=== PATIENT | female | born 1955 | race African-American/Black ===

== ENCOUNTER 2017-03-16 17:13 | Inpatient (IN) | payer OTHER ==
[2017-03-16 21:15] VITALS: BMI 31.1
--- NOTE | 2017-03-16 22:50 | HP ---
COWS - Scale Resting Pulse: 2= [place] 101-120 Sweatin=Flushed/Facial Moisture Restless Observation: 5= Unable to Sit Still Pupil Size: 1= Pupils >than Normal Bone or Joint Aches: 4=Acute Joint/Muscle Pain Runny Nose/ Eye Tearin= Nasal Congestion GI Upset > 30mins: 1= Stomach Cramp Tremor Observation: 4= Gross Tremor/Twitching Yawning Observation: 0= None Anxiety or Irritability: 2=Irritable/Anxious Goose Flesh Skin: 0=Smooth Skin COWS Score: 22 Admission ROS S - HPI Chief Complaint: SEEKING HELP FOR HEROIN ADDICTION AND WITHDRAWAL SX'S Allergies/Adverse Reactions: Allergies Allergy/AdvReac Type Severity Reaction Status Date / Time haloperidol [From Haldol] AdvReac Verified 03/16/17 22:45 haloperidol lactate AdvReac Verified 03/16/17 22:45 [From Haldol] History of Present Illness: 61 Y.O. FEMLAE WITH HX/O OPIOID DEPENDNECE ADMITTED TO DETOX TXMENT. CLIENT IS SELF REFERRED. DENIES ANY DETOX/ REHAB SERVICES IN OVER A YEAR. REPORTS LONGEST CLEAN TIME 11 YEARS RELAPSING THIS PAST YEAR. Exam Limitations: No Limitations - Ebola screening Have you traveled outside of the country in the last 21 days: No Have you had contact with anyone from an Ebola affected area: No Have you been sick,other than usual withdrawal symptoms: No Do you have a fever: No - Review of Systems Constitutional: Chills, Loss of Appetite, Night Sweats, Changes in sleep EENT: reports: Hearing Loss, Dental Problems (DENTURES UPPER), Other (GLASSES) Respiratory: reports: Shortness of Breath, Other (H/O ASTHMA) Cardiac: reports: No Symptoms Reported GI: reports: Nausea, Abdominal cramping : reports: No Symptoms Reported Musculoskeletal: reports: Back Pain, Joint Pain Integumentary: reports: No Symptoms Reported Neuro: reports: No Symptoms reported Endocrine: reports: No Symptoms Reported Hematology: reports: No Symptoms Reported Psychiatric: reports: Anxious, Depressed Other Systems: Reviewed and Negative Patient History - Patient Medical History Hx Anemia: Yes Hx Asthma: Yes Hx Chronic Obstructive Pulmonary Disease (COPD): Yes Hx Cancer: No Hx Cardiac Disorders: No Hx Congestive Heart Failure: No Hx Hypertension: No Hx Hypercholesterolemia: Yes Hx Pacemaker: No HX Cerebrovascular Accident: Yes (8 MONTHS AGO) Hx Seizures: No Hx Dementia: No Hx Diabetes: No Hx Gastrointestinal Disorders: No Hx Liver Disease: No Hx Genitourinary Disorders: No Hx Sexually Transmitted Disorders: No Hx Renal Disease (ESRD): No Hx Thyroid Disease: No Hx Human Immunodeficiency Virus (HIV): No Hx Hepatitis C: No Hx Depression: Yes Hx Suicide Attempt: Yes Hx Bipolar Disorder: Yes Hx Schizophrenia: Yes Other Medical History: DENIES - Patient Surgical History Past Surgical History: No - PPD History Previous Implant?: Yes Documented Results: Positive w/o proof Implanted On Prior [facility] Admission?: No PPD to be Administered?: No - Reproductive History Patient is a Female of Child Bearing Age (11 -55 yrs old): No Patient : No (NEG [facility] [place]) - Smoking Cessation Smoking history: Current every day smoker Have you smoked in the past 12 months: Yes Aproximately how many cigarettes per day: 10 Cigars Per Day: 0 Hx Chewing Tobacco Use: No Initiated information on smoking cessation: Yes 'Breaking Loose' booklet given: 03/16/17 - Substance & Tx. History Hx Substance Use: Yes Substance Use Type: Cocaine, Heroin Hx Substance Use Treatment: Yes ([facility]) - Substances Abused HEROIN Route: Injection Frequency: Daily Amount used: 10BAGS Age of first use: 15 Date of Last Use: 03/16/17 COCAINE Route: Injection Frequency: Daily Amount used: 5 BAGS Age of first use: 15 Date of Last Use: 03/13/17 Family Disease History - Family Disease History Family Disease History: Heart Disease: Mother (DEMENTIA), Other: Mother Admission Physical Exam [facility] - Vital Signs Vital Signs: Vital Signs - 24 hr 03/16/17 21:13 Temperature 98.8 F Pulse Rate 115 H Respiratory 20 Rate Blood Pressure 145/88 - Physical General Appearance: Yes: Appropriately Dressed, Anxious HEENTM: Yes: EOMI, Normocephalic, Normal Voice, Pharynx Normal Respiratory: Yes: Chest Non-Tender, No Respiratory Distress, No Accessory Muscle Use, Wheezing Neck: Yes: No masses,lesions,Nodules, Supple, Trachea in good position Breast: Yes: Breast Exam Deferred Cardiology: Yes: Regular Rhythm, S1, S2, Tachycardia Abdominal: Yes: Normal Bowel Sounds, Non Tender, Soft Genitourinary: Yes: Within Normal Limits Back: Yes: Normal Inspection Musculoskeletal: Yes: full range of Motion, Gait Steady Extremities: Yes: Normal Capillary Refill, Normal Range of Motion, Non-Tender, Tremors Neurological: Yes: mechanical artist II-XII NML intact, Fully Oriented, Alert, Motor Strength 5/5 Integumentary: Yes: Normal Color, Dry, Warm Lymphatic: Yes: Within Normal Limits - Diagnostic (1) Opioid dependence with withdrawal Current Visit: Yes Status: Acute (2) Nicotine dependence Current Visit: Yes Status: Acute (3) Asthma Current Visit: Yes Status: Acute (4) Cocaine dependence, uncomplicated Current Visit: Yes Status: Acute (5) HLD (hyperlipidemia) Current Visit: Yes Status: Acute (6) Anemia Current Visit: Yes Status: Acute Cleared for Admission [facility] - Detox or Rehab [facility] Level of Care: Medically Managed Detox Regimen/Protocol: Methadone [facility] Breath Alcohol Content Breath Alcohol Content: 0 Urine Pregancy Test - Result Urine Test Results: Negative- NO Line Present Urine Drug Screen - Results Drug Screen Negative: No Urine Drug Screen Results: ANA MARIA-Cocaine, OPI-Opiates, MET-Methamphetamine, MTD- Methadone
[2017-03-16] MEDS ORDERED: MENTHOL/PHENOL 1 EACH UD MM PRN (23:05)
[2017-03-16] MEDS ORDERED: NICOTINE POLACRILEX 2 MG GUM BUC PRN (23:05)
[2017-03-16] MEDS ORDERED: MAGNESIUM HYDROX 2400MG/30ML ORAL SUSPENSION 30 ML CUP PO PRN (23:05)
[2017-03-16] MEDS ORDERED: P-EPHED 60MG/TRIPROLIDI 2.5MG TABLET PO PRN (23:05)
[2017-03-16] MEDS ORDERED: ACETAMINOPHEN 325 MG TABLET (FP) PO PRN (23:05)
[2017-03-16] MEDS ORDERED: guaiFENesin/D-METHORPHAN HB 10 ML UNIT-DOSE CUPS PO PRN (23:05)
[2017-03-16] MEDS ORDERED: LOPERAMIDE HCL 2 MG CAPSULE PO PRN (23:05)
[2017-03-16] MEDS ORDERED: MAGNESIUM CITRATE 300 ML BOTTLE PO PRN (23:05)
[2017-03-17] MEDS ORDERED: METHADONE HCL 10 MG TABLET (FOR DETOX USE ONLY) PO ONE ×3 (00:42→23:00)
[2017-03-17] MEDS: diazePAM 5 MG TABLET PO PRN ×4 (01:42→22:09)
[2017-03-17] MEDS: diphenhydrAMINE HCL 50 MG CAPSULE PO PRN (01:43)
[2017-03-17] MEDS: MAG HYDROX/AL HYDROX/SIMETH 30 ML UNIT-DOSE CUP PO PRN ×2 (02:16→13:02)
[2017-03-17] MEDS: ALBUTEROL SO4 18 GM HFA INHALER IH PRN (02:19)
[2017-03-17] MEDS: IBUPROFEN 400 MG TABLET (FP) PO PRN ×3 (02:42→17:54)
[2017-03-17] MEDS: PRENATAL VITAMINS W/ FOLIC ACID TABLET (FP) PO SCH (10:21)
[2017-03-17] MEDS: NICOTINE 14 MG/24 HOURS TOPICAL PATCH TD SCH (10:21)
--- NOTE | 2017-03-17 10:44 | PN ---
BHS COWS - Scale Resting Pulse: 1= [place] 81-100 Sweatin=Flushed/Facial Moisture Restless Observation: 1= Difficult to Sit Still Pupil Size: 0= Normal to Room Light Bone or Joint Aches: 2= Severe Diffuse Aches Runny Nose/ Eye Tearin= Runny Nose/Eyes GI Upset > 30mins: 2= Nausea/Diarrhea Tremor Observation of Outstretched Hands: 2= Slight Tremor Visible Yawning Observation: 2= >3x During Session Anxiety or Irritability: 2=Irritable/Anxious Goose Flesh Skin: 3=Piloerection COWS Score: 19 BHS Progress Note (SOAP) Subjective: shakes sweats interrupted sleep agitation anxiety muscle cramps Objective: 03/17/17 10:43 Vital Signs Temperature 98.2 F 03/17/17 10:00 Pulse Rate 91 H 03/17/17 10:00 Respiratory Rate 18 03/17/17 10:00 Blood Pressure 130/83 03/17/17 10:00 O2 Sat by Pulse Oximetry (%) labs pending aaox3 ambulating no acute distress Assessment: 03/17/17 10:43 withdrawal sx Plan: continue detox increase fluids flexiril prn labs pending
[2017-03-17] MEDS ORDERED: FLU VACCINE QUAD 60 MCG/0.5 ML (MDV 17-18) IM ONE (12:00)
--- NOTE | 2017-03-17 12:38 | CONSULT ---
[facility] - Data Date of interview: 03/17/17 Admission source: [facility]
[2017-03-17] MEDS: THIAMINE HCL 100 MG TABLET (FP) PO SCH (22:09)
[2017-03-18] MEDS: IBUPROFEN 400 MG TABLET (FP) PO PRN (05:57)
[2017-03-18] MEDS: diazePAM 5 MG TABLET PO PRN ×3 (05:57→22:11)
[2017-03-18] MEDS: ALBUTEROL SO4 18 GM HFA INHALER IH PRN (06:29)
[2017-03-18] MEDS ORDERED: METHADONE HCL 10 MG TABLET (FOR DETOX USE ONLY) PO ONE (10:00)
[2017-03-18 10:08] LABS: URINE APPEARANCE CLOUDY; URINE BILIRUBIN NEGATIVE (NEGATIVE); URINE BLOOD 1+ (NEGATIVE); URINE COLOR YELLOW; URINE GLUCOSE (UA) NEGATIVE (NEGATIVE); URINE KETONE NEGATIVE (NEGATIVE); URINE NITRITE NEGATIVE (NEGATIVE); URINE PROTEIN NEGATIVE (NEGATIVE); URINE UROBILINOGEN NEGATIVE mg/dL (0.2-1.0)
[2017-03-18 10:19] LABS: MCH 23.9 pg (25.7-33.7); MCHC 31.7 g/dl (32.0-36.0); MEAN CELL VOLUME 75.4 fl (80-96); MEAN PLT VOLUME 8.4 fl (7.5-11.1); PLATELET COUNT 236 K/MM3 (134-434); RDW 19.4 % (11.6-15.6); WHITE BLOOD COUNT 6.3 K/mm3 (4.0-10.0)
[2017-03-18 10:31] LABS: URINE BACTERIA MANY /hpf (NONE SEEN); URINE RBC 7 /hpf (0-3); URINE WBC <1 /hpf (3-5)
[2017-03-18] MEDS: NICOTINE 14 MG/24 HOURS TOPICAL PATCH TD SCH (10:36)
[2017-03-18] MEDS: PRENATAL VITAMINS W/ FOLIC ACID TABLET (FP) PO SCH (10:36)
[2017-03-18 10:47] LABS: ALBUMIN 3.5 g/dl (3.4-5.0); ALK PHOS 117 U/L (45-117); ANION GAP 7 (8-16); BILIRUBIN,TOTAL 0.2 mg/dL (0.2-1.0); CALCIUM 8.9 mg/dL (8.5-10.1); CO2 28 mmol/L (21-32); CREATININE 1.1 mg/dL (0.55-1.02); GLUCOSE,RANDOM 105 mg/dL (74-106); SGOT/AST 13 U/L (15-37); SGPT/ALT 15 U/L (12-78); TOT PROT 6.6 g/dl (6.4-8.2)
[2017-03-18] MEDS ORDERED: LIDOCAINE 5% TOPICAL PATCH TP SCH (11:00)
[2017-03-18] MEDS ORDERED: ONDANSETRON *ODT* 4 MG TABLET SL ONE ×2 (11:15→15:00)
[2017-03-18] MEDS: PANTOPRAZOLE 40 MG TABLET (FP) PO SCH (11:15)
--- NOTE | 2017-03-18 11:57 | EKG ---
Test Reason : Blood Pressure : / mmHG Vent. Rate : 095 BPM Atrial Rate : 095 BPM P-R Int : 144 ms QRS Dur : 078 ms QT Int : 358 ms P-R-T Axes : 054 041 138 degrees QTc Int : 449 ms NORMAL SINUS RHYTHM NONSPECIFIC T WAVE ABNORMALITY ABNORMAL ECG NO PREVIOUS ECGS AVAILABLE Confirmed by GE VIDAL, VI ([id number]) on 03/18/2017 11:57:15 AM Referred By: Confirmed By:VI CAROLINA MD
--- NOTE | 2017-03-18 12:51 | PN ---
S CIWA - CIWA Score Nausea/Vomitin-Int. Nausea w/Dry Heave Muscle Tremors: 4-Moderate,w/Arms Extend Anxiety: 4-Mod. Anxious/Guarded Agitation: 4-Moderately Restless Paroxysmal Sweats: No Perspiration Orientation: 0-Oriented Tacttile Disturbances: 1-Very Mild Itch/Numbness Auditory Disturbances: 0-None Visual Disturbances: 0-None Headache: 3-Moderate CIWA-Ar Total Score: 20 BHS Progress Note (SOAP) Subjective: N/V/D, stomach ache, headache, tingling/numbness of fingers, muscle spasm Objective: 03/18/17 12:48 Last Vital Signs Temp Pulse Resp BP Pulse Ox 96.4 F L 90 20 150/75 03/18/17 10:00 03/18/17 10:00 03/18/17 10:00 03/18/17 10:00 Laboratory Tests 03/18/17 03/18/17 03/18/17 07:00 07:00 07:00 WBC 6.3 RBC 5.44 H Hgb 13.0 Hct 41.0 MCV 75.4 L MCH 23.9 L MCHC 31.7 L RDW 19.4 H Plt Count 236 MPV 8.4 Sodium 140 Potassium 4.7 Chloride 105 Carbon Dioxide 28 Anion Gap 7 L BUN 25 H Creatinine 1.1 H Creat Clearance w eGFR 50.17 Random Glucose 105 Calcium 8.9 Total Bilirubin 0.2 AST 13 L ALT 15 Alkaline Phosphatase 117 Total Protein 6.6 Albumin 3.5 Urine Color Urine Appearance Urine pH Urine Protein Urine Glucose (UA) Urine Ketones Urine Blood Urine Nitrite Urine Bilirubin Urine Urobilinogen Urine RBC Urine WBC Ur Epithelial Cells Urine Bacteria RPR Titer Nonreactive 03/18/17 08:30 WBC RBC Hgb Hct MCV MCH MCHC RDW Plt Count MPV Sodium Potassium Chloride Carbon Dioxide Anion Gap BUN Creatinine Creat Clearance w eGFR Random Glucose Calcium Total Bilirubin AST ALT Alkaline Phosphatase Total Protein Albumin Urine Color Yellow Urine Appearance Cloudy Urine pH 5.0 Urine Protein Negative Urine Glucose (UA) Negative Urine Ketones Negative Urine Blood 1+ H Urine Nitrite Negative Urine Bilirubin Negative Urine Urobilinogen Negative Urine RBC 7 Urine WBC <1 Ur Epithelial Cells Rare Urine Bacteria Many RPR Titer Labs noted: UA noted with microscopic hematuria, BUN 25, serum creatinine 1.1 Assessment: 03/18/17 12:50 Withdrawal symptoms Noted with prerenal azotemia and microscopic hematuria Plan: Continue detox, zofran 4mg SL x 1 dose then q8hr prn; h/o GERD: protonix 20mg PO x 1 dose Prerenal azotemia: encouraged to drink lots of water (water pitcher ordered), repeat BMP in AM Microscopic hematuria: repeat UA
[2017-03-18 17:42] LABS: URINE LEUK ESTERASE TRACE (NEGATIVE)
[2017-03-18] MEDS ORDERED: ONDANSETRON *ODT* 4 MG TABLET SL PRN (19:00)
[2017-03-18] MEDS ORDERED: LIDOCAINE PATCH REMOVAL MC SCH (22:00)
[2017-03-18] MEDS: THIAMINE HCL 100 MG TABLET (FP) PO SCH (22:11)
[2017-03-18] MEDS: CYCLOBENZAPRINE HCL 10 MG TABLET (FP) PO PRN (22:12)
[2017-03-18] MEDS: ALBUTEROL SO4 2.5/IPRATROPIUM 0.5 INH SOL 3 ML VIAL.NEB. NEB PRN (22:13)
[2017-03-19] MEDS: IBUPROFEN 400 MG TABLET (FP) PO PRN (06:00)
[2017-03-19] MEDS: diazePAM 5 MG TABLET PO PRN ×2 (06:00→22:02)
[2017-03-19] MEDS: CYCLOBENZAPRINE HCL 10 MG TABLET (FP) PO PRN ×2 (06:01→22:03)
[2017-03-19] MEDS ORDERED: SUMAtriptan SUCCINATE 25 MG TABLET PO ONE (09:51)
[2017-03-19] MEDS ORDERED: METHADONE HCL 5 MG TABLET (FOR DETOX USE ONLY) PO ONE (10:00)
[2017-03-19] MEDS: PRENATAL VITAMINS W/ FOLIC ACID TABLET (FP) PO SCH (10:40)
[2017-03-19] MEDS: PANTOPRAZOLE 40 MG TABLET (FP) PO SCH (10:40)
[2017-03-19 11:04] LABS: ANION GAP 10 (8-16); CALCIUM 8.8 mg/dL (8.5-10.1); CO2 26 mmol/L (21-32); GLUCOSE,RANDOM 141 mg/dL (74-106)
--- NOTE | 2017-03-19 11:06 | PN ---
BHS Progress Note (SOAP) Subjective: muscle cramps sweats interrupted sleep headache Objective: 03/19/17 11:05 Vital Signs Temperature 99.9 F H 03/19/17 10:04 Pulse Rate 86 03/19/17 10:04 Respiratory Rate 18 03/19/17 10:04 Blood Pressure 120/71 03/19/17 10:04 O2 Sat by Pulse Oximetry (%) Laboratory Tests 03/18/17 03/18/17 03/18/17 07:00 07:00 07:00 WBC 6.3 RBC 5.44 H Hgb 13.0 Hct 41.0 MCV 75.4 L MCH 23.9 L MCHC 31.7 L RDW 19.4 H Plt Count 236 MPV 8.4 Sodium 140 Potassium 4.7 Chloride 105 Carbon Dioxide 28 Anion Gap 7 L BUN 25 H Creatinine 1.1 H Creat Clearance w eGFR 50.17 Random Glucose 105 Calcium 8.9 Total Bilirubin 0.2 AST 13 L ALT 15 Alkaline Phosphatase 117 Total Protein 6.6 Albumin 3.5 Urine Color Urine Appearance Urine pH Ur Specific [place] Urine Protein Urine Glucose (UA) Urine Ketones Urine Blood Urine Nitrite Urine Bilirubin Urine Urobilinogen Ur Leukocyte Esterase Urine RBC Urine WBC Ur Epithelial Cells Urine Bacteria RPR Titer Nonreactive 03/18/17 08:30 WBC RBC Hgb Hct MCV MCH MCHC RDW Plt Count MPV Sodium Potassium Chloride Carbon Dioxide Anion Gap BUN Creatinine Creat Clearance w eGFR Random Glucose Calcium Total Bilirubin AST ALT Alkaline Phosphatase Total Protein Albumin Urine Color Yellow Urine Appearance Cloudy Urine pH 5.0 Ur Specific [place] 1.015 Urine Protein Negative Urine Glucose (UA) Negative Urine Ketones Negative Urine Blood 1+ H Urine Nitrite Negative Urine Bilirubin Negative Urine Urobilinogen Negative Ur Leukocyte Esterase Trace H Urine RBC 7 Urine WBC <1 Ur Epithelial Cells Rare Urine Bacteria Many RPR Titer repeated labs ordered pending aaox3 ambulating no acute distress Assessment: 03/19/17 11:06 withdrawal sx Plan: continue detox increase fluids motrin 600mg prn imitrex 25mg x one flexiril prn
[2017-03-19] MEDS: NICOTINE 14 MG/24 HOURS TOPICAL PATCH TD SCH (11:36)
[2017-03-19] MEDS: ALBUTEROL SO4 2.5/IPRATROPIUM 0.5 INH SOL 3 ML VIAL.NEB. NEB PRN (19:32)
[2017-03-19] MEDS: THIAMINE HCL 100 MG TABLET (FP) PO SCH (22:03)
[2017-03-19] MEDS: IBUPROFEN 600 MG TABLET (FP) PO PRN (22:03)
[2017-03-19] MEDS: diphenhydrAMINE HCL 50 MG CAPSULE PO PRN (22:03)
[2017-03-19] MEDS: ALBUTEROL SO4 18 GM HFA INHALER IH PRN (22:05)
[2017-03-20] MEDS: CYCLOBENZAPRINE HCL 10 MG TABLET (FP) PO PRN ×2 (06:05→10:26)
[2017-03-20] MEDS: IBUPROFEN 600 MG TABLET (FP) PO PRN (06:05)
[2017-03-20] MEDS: MAG HYDROX/AL HYDROX/SIMETH 30 ML UNIT-DOSE CUP PO PRN (06:07)
[2017-03-20] MEDS ORDERED: METHADONE HCL 5 MG TABLET (FOR DETOX USE ONLY) PO ONE (10:00)
[2017-03-20] MEDS: PRENATAL VITAMINS W/ FOLIC ACID TABLET (FP) PO SCH (10:25)
[2017-03-20] MEDS: PANTOPRAZOLE 40 MG TABLET (FP) PO SCH (10:26)
[2017-03-20] MEDS: NICOTINE 14 MG/24 HOURS TOPICAL PATCH TD SCH (10:26)
--- NOTE | 2017-03-20 12:25 | PN ---
BHS Progress Note (SOAP) Subjective: sweats shakes interrupted sleep muscle aches Objective: 03/20/17 12:25 Vital Signs Temperature 99.7 F H 03/20/17 09:56 Pulse Rate 94 H 03/20/17 09:56 Respiratory Rate 17 03/20/17 09:56 Blood Pressure 130/83 03/20/17 09:56 O2 Sat by Pulse Oximetry (%) aaox3 ambulating no acute distress Assessment: 03/20/17 12:25 withdrawal sx Plan: continue detox increase fluids
[2017-03-20] MEDS: ALBUTEROL SO4 2.5/IPRATROPIUM 0.5 INH SOL 3 ML VIAL.NEB. NEB PRN (14:53)
[2017-03-20] MEDS ORDERED: hydrOXYzine HCL 25 MG TABLET (FP) PO PRN (17:20)
[2017-03-20] MEDS: THIAMINE HCL 100 MG TABLET (FP) PO SCH (22:35)
[2017-03-21] MEDS: CYCLOBENZAPRINE HCL 10 MG TABLET (FP) PO PRN ×2 (03:04→10:32)
[2017-03-21] MEDS: IBUPROFEN 600 MG TABLET (FP) PO PRN (03:04)
[2017-03-21] MEDS ORDERED: METHADONE HCL 10 MG TABLET (FOR DETOX USE ONLY) PO ONE (10:00)
[2017-03-21] MEDS: PANTOPRAZOLE 40 MG TABLET (FP) PO SCH (10:32)
[2017-03-21] MEDS: PRENATAL VITAMINS W/ FOLIC ACID TABLET (FP) PO SCH (10:33)
[2017-03-21] MEDS: NICOTINE 14 MG/24 HOURS TOPICAL PATCH TD SCH (10:33)
--- NOTE | 2017-03-21 12:48 | PN ---
BHS Progress Note (SOAP) Subjective: achy, anxious, poor sleep Objective: 03/21/17 12:48 Vital Signs - 24 hr 03/20/17 03/20/17 03/20/17 14:55 18:28 23:53 Temperature 97.7 F 98.2 F 99.3 F Pulse Rate 89 89 97 H Respiratory 18 18 20 Rate Blood Pressure 139/81 126/76 147/96 03/21/17 03/21/17 03/21/17 00:30 03:30 06:50 Temperature 97.6 F Pulse Rate 88 Respiratory 18 17 18 Rate Blood Pressure 134/77 03/21/17 11:25 Temperature 97.5 F L Pulse Rate 93 H Respiratory 18 Rate Blood Pressure 147/84 Laboratory Tests 03/18/17 03/18/17 03/18/17 07:00 07:00 07:00 WBC 6.3 RBC 5.44 H Hgb 13.0 Hct 41.0 MCV 75.4 L MCH 23.9 L MCHC 31.7 L RDW 19.4 H Plt Count 236 MPV 8.4 Sodium 140 Potassium 4.7 Chloride 105 Carbon Dioxide 28 Anion Gap 7 L BUN 25 H Creatinine 1.1 H Creat Clearance w eGFR 50.17 Random Glucose 105 Calcium 8.9 Total Bilirubin 0.2 AST 13 L ALT 15 Alkaline Phosphatase 117 Total Protein 6.6 Albumin 3.5 Urine Color Urine Appearance Urine pH Ur Specific [place] Urine Protein Urine Glucose (UA) Urine Ketones Urine Blood Urine Nitrite Urine Bilirubin Urine Urobilinogen Ur Leukocyte Esterase Urine RBC Urine WBC Ur Epithelial Cells Urine Bacteria RPR Titer Nonreactive 03/18/17 03/19/17 08:30 07:00 WBC RBC Hgb Hct MCV MCH MCHC RDW Plt Count MPV Sodium 139 Potassium 4.6 Chloride 103 Carbon Dioxide 26 Anion Gap 10 BUN 23 H Creatinine 1.0 Creat Clearance w eGFR Random Glucose 141 H D Calcium 8.8 Total Bilirubin AST ALT Alkaline Phosphatase Total Protein Albumin Urine Color Yellow Urine Appearance Cloudy Urine pH 5.0 Ur Specific [place] 1.015 Urine Protein Negative Urine Glucose (UA) Negative Urine Ketones Negative Urine Blood 1+ H Urine Nitrite Negative Urine Bilirubin Negative Urine Urobilinogen Negative Ur Leukocyte Esterase Trace H Urine RBC 7 Urine WBC <1 Ur Epithelial Cells Rare Urine Bacteria Many RPR Titer Assessment: 03/21/17 12:48 withdrawal Plan: cont detox protocl am dc
[2017-03-21] MEDS ORDERED: hydrOXYzine PAMOATE 50 MG CAPSULE (FP) PO PRN (15:58)
[2017-03-21] MEDS: THIAMINE HCL 100 MG TABLET (FP) PO SCH (22:23)
[2017-03-22] MEDS: ALBUTEROL SO4 2.5/IPRATROPIUM 0.5 INH SOL 3 ML VIAL.NEB. NEB PRN (00:31)
[2017-03-22] MEDS ORDERED: METHADONE HCL 5 MG TABLET (FOR DETOX USE ONLY) PO ONE (06:00)
[2017-03-22 07:34] VITALS: BP 143/80; PULSE 94; TEMP 98.2
--- NOTE | 2017-03-22 10:19 | DS ---
[facility] Detox Discharge Summary Admission Date: 03/16/17 Discharge Date: 03/22/17 - History Present History: Cocaine Dependence, Opioid Dependence Pertinent Past History: Asthma - Physical Exam Results Vital Signs: Vital Signs Temperature 98.2 F 03/22/17 06:00 Pulse Rate 94 H 03/22/17 06:00 Respiratory Rate 18 03/22/17 06:00 Blood Pressure 143/80 03/22/17 06:00 O2 Sat by Pulse Oximetry (%) Pertinent Admission Physical Exam Findings: Withdrawal sx. Laboratory Tests 03/18/17 03/18/17 03/18/17 07:00 07:00 07:00 WBC 6.3 RBC 5.44 H Hgb 13.0 Hct 41.0 MCV 75.4 L MCH 23.9 L MCHC 31.7 L RDW 19.4 H Plt Count 236 MPV 8.4 Sodium 140 Potassium 4.7 Chloride 105 Carbon Dioxide 28 Anion Gap 7 L BUN 25 H Creatinine 1.1 H Creat Clearance w eGFR 50.17 Random Glucose 105 Calcium 8.9 Total Bilirubin 0.2 AST 13 L ALT 15 Alkaline Phosphatase 117 Total Protein 6.6 Albumin 3.5 Urine Color Urine Appearance Urine pH Ur Specific [place] Urine Protein Urine Glucose (UA) Urine Ketones Urine Blood Urine Nitrite Urine Bilirubin Urine Urobilinogen Ur Leukocyte Esterase Urine RBC Urine WBC Ur Epithelial Cells Urine Bacteria RPR Titer Nonreactive 03/18/17 03/19/17 08:30 07:00 WBC RBC Hgb Hct MCV MCH MCHC RDW Plt Count MPV Sodium 139 Potassium 4.6 Chloride 103 Carbon Dioxide 26 Anion Gap 10 BUN 23 H Creatinine 1.0 Creat Clearance w eGFR Random Glucose 141 H D Calcium 8.8 Total Bilirubin AST ALT Alkaline Phosphatase Total Protein Albumin Urine Color Yellow Urine Appearance Cloudy Urine pH 5.0 Ur Specific [place] 1.015 Urine Protein Negative Urine Glucose (UA) Negative Urine Ketones Negative Urine Blood 1+ H Urine Nitrite Negative Urine Bilirubin Negative Urine Urobilinogen Negative Ur Leukocyte Esterase Trace H Urine RBC 7 Urine WBC <1 Ur Epithelial Cells Rare Urine Bacteria Many RPR Titer labs noted - Treatment Hospital Course: Detox Protocol Followed, Detoxed Safely, Responded well, Discharged Condition Good, Rehab Referral Accepted Patient has Accepted a Rehab Referral to: [facility] [place] - Medication Discharge Medications: Ambulatory Orders Albuterol Sulfate Inhaler - [Ventolin Hfa Inhaler -] 1 - 2 inh PO Q4H PRN Budesonide/Formeterol Fumarate [SYMBICORT 80/4.5mcg -] 1 inh PO BID 03/17/17 Pantoprazole Sodium [Protonix] 40 mg PO DAILY 03/17/17 - Diagnosis (1) Asthma Current Visit: Yes Status: Chronic Qualifiers: Asthma severity: mild Asthma persistence: intermittent Asthma complication type: uncomplicated Qualified Code(s): J45.20 - Mild intermittent asthma, uncomplicated; J45.20 - Mild intermittent asthma, uncomplicated; J45.20 - Mild intermittent asthma, uncomplicated (2) Cocaine dependence, uncomplicated Current Visit: Yes Status: Chronic (3) HLD (hyperlipidemia) Current Visit: Yes Status: Chronic Qualifiers: Hyperlipidemia type: pure hypercholesterolemia Qualified Code(s): E78.00 - Pure hypercholesterolemia, unspecified; E78.00 - Pure hypercholesterolemia, unspecified; E78.00 - Pure hypercholesterolemia, unspecified; E78.0 - Pure hypercholesterolemia (4) Nicotine dependence Current Visit: Yes Status: Chronic Qualifiers: Nicotine product type: cigarettes Substance use status: uncomplicated Qualified Code(s): F17.210 - Nicotine dependence, cigarettes, uncomplicated; F17.210 - Nicotine dependence, cigarettes, uncomplicated (5) Opioid dependence with withdrawal Current Visit: Yes Status: Chronic - AMA Did Patient Leave Against Medical Advice: No
== END 2017-03-22 09:25 | disposition home or self-care (01) | DRG 773 ==
LOC: YASAS 17:13 → Y6N 23:47
PROVIDERS: ADMIT Internal Medicine; ATTEND Internal Medicine
PROC: HZ2ZZZZ Detoxification Services for Substance Abuse Treatment (ICD-10-PCS; principal; 2017-03-16)
DX: F11.23 Opioid dependence with withdrawal (principal); F14.20 Cocaine dependence, uncomplicated; F17.210 Nicotine dependence, cigarettes, uncomplicated; F31.9 Bipolar disorder, unspecified; F20.9 Schizophrenia, unspecified; R76.11 Nonspecific reaction to tuberculin skin test without active tuberculosis; Z91.5 Personal history of self-harm; Z86.73 Personal history of transient ischemic attack (TIA), and cerebral infarction without residual deficits
CPT/HCPCS: 36415; 71020-TC; 80048; 80053; 81003; 81015; 85027; 86593; 90688; 93005; 93010; 94640; G0008

== ENCOUNTER 2017-03-27 16:12 | Inpatient (IN) | payer OTHER ==
[2017-03-27 19:27] VITALS: BMI 32.7
--- NOTE | 2017-03-27 20:17 | HP ---
Admission [facility] Chief Complaint: REHAB SERVICES Allergies/Adverse Reactions: Allergies Allergy/AdvReac Type Severity Reaction Status Date / Time cheese Allergy Mild Verified 03/27/17 20:00 haloperidol [From Haldol] AdvReac Verified 03/27/17 20:00 haloperidol lactate AdvReac Verified 03/27/17 20:00 [From Haldol] mayonaise AdvReac Severe Swelling Uncoded 03/27/17 20:00 History of Present Illness: 61 Y.O. WOMAN WITH A HISTORY OF HEROIN AND COCAINE DEPENDENCE IS HERE SEEKING REHAB. SHE COMPLETED DETOX ON 03/22/17. LONGEST PERIOD CLEAN HAS BEEN 11 YEARS. Exam Limitations: No Limitations - Ebola screening Have you traveled outside of the country in the last 21 days: No Have you had contact with anyone from an Ebola affected area: No Have you been sick,other than usual withdrawal symptoms: No Do you have a fever: No - Review of Systems Constitutional: Changes in sleep EENT: reports: No Symptoms Reported Respiratory: reports: Shortness of Breath Cardiac: reports: No Symptoms Reported GI: reports: No Symptoms Reported : reports: No Symptoms Reported Musculoskeletal: reports: Back Pain, Joint Pain Integumentary: reports: No Symptoms Reported Neuro: reports: No Symptoms reported Endocrine: reports: No Symptoms Reported Hematology: reports: No Symptoms Reported Psychiatric: reports: Judgement Intact, Mood/Affect Appropiate, Orientated x3 Other Systems: Reviewed and Negative Patient History - Patient Medical History Hx Anemia: Yes Hx Asthma: Yes Hx Chronic Obstructive Pulmonary Disease (COPD): Yes Hx Cancer: No Hx Cardiac Disorders: No Hx Congestive Heart Failure: No Hx Hypertension: Yes Hx Hypercholesterolemia: Yes Hx Pacemaker: No HX Cerebrovascular Accident: Yes (8 MONTHS AGO) Hx Seizures: No Hx Dementia: No Hx Diabetes: No Hx Gastrointestinal Disorders: No Hx Liver Disease: No Hx Genitourinary Disorders: No Hx Sexually Transmitted Disorders: No Hx Renal Disease (ESRD): No Hx Thyroid Disease: No Hx Human Immunodeficiency Virus (HIV): No Hx Hepatitis C: No Hx Depression: Yes Hx Suicide Attempt: No Hx Bipolar Disorder: Yes Hx Schizophrenia: No - Patient Surgical History Past Surgical History: No Hx Neurologic Surgery: No Hx Cataract Extraction: No Hx Cardiac Surgery: No Hx Lung Surgery: No Hx Breast Surgery: No Hx Breast Biopsy: No Hx Abdominal Surgery: No Hx Appendectomy: No Hx Cholecystectomy: No Hx Genitourinary Surgery: No Hx Section: No Hx Orthopedic Surgery: No Anesthesia Reaction: No - PPD History Date: 03/17/17 Results: CXR=WNL PPD to be Administered?: No - Reproductive History Patient is a Female of Child Bearing Age (11 -55 yrs old): No - Smoking Cessation Smoking history: Current every day smoker Have you smoked in the past 12 months: Yes Aproximately how many cigarettes per day: 10 Cigars Per Day: 0 Hx Chewing Tobacco Use: No Initiated information on smoking cessation: Yes 'Breaking Loose' booklet given: 03/27/17 - Substance & Tx. History Hx Alcohol Use: No Hx Substance Use: Yes Substance Use Type: Cocaine, Heroin Hx Substance Use Treatment: Yes (DETOX: 03/2017) - Substances Abused Heroin Route: Injection Frequency: Daily Amount used: 10 BAGS Age of first use: 15 Date of Last Use: 03/16/17 Cocaine Route: Injection Frequency: Daily Amount used: $500 Age of first use: 15 Date of Last Use: 03/16/17 Family Disease History - Family Disease History Family Disease History: Heart Disease: Mother (DEMENTIA), Other: Mother Admission Physical Exam S - Vital Signs Vital Signs: Vital Signs - 24 hr 03/27/17 19:25 Temperature 97.8 F Pulse Rate 111 H Respiratory 20 Rate Blood Pressure 162/93 - Physical General Appearance: Yes: No Apparent Distress, Nourished, Appropriately Dressed HEENTM: Yes: Hearing grossly Normal, Normocephalic, Normal Voice Respiratory: Yes: Wheezing Neck: Yes: No masses,lesions,Nodules, Trachea in good position Breast: Yes: Breast Exam Deferred Cardiology: Yes: Regular Rhythm, Tachycardia Abdominal: Yes: Non Tender, Flat, Soft Genitourinary: Yes: Other (NO COMPLAINTS REPORTED) Back: Yes: Normal Inspection Musculoskeletal: Yes: full range of Motion, Gait Steady Extremities: Yes: Normal Capillary Refill, Normal Inspection, Normal Range of Motion, Non-Tender Neurological: Yes: Fully Oriented, Alert, Normal Mood/Affect, Normal Response Integumentary: Yes: Normal Color, Dry, Warm Lymphatic: Yes: Within Normal Limits - Diagnostic (1) Asthma Current Visit: No Status: Chronic Qualifiers: Asthma severity: mild Asthma persistence: intermittent Asthma complication type: uncomplicated Qualified Code(s): J45.20 - Mild intermittent asthma, uncomplicated; J45.20 - Mild intermittent asthma, uncomplicated; J45.20 - Mild intermittent asthma, uncomplicated (2) Cocaine dependence, uncomplicated Current Visit: Yes Status: Chronic (3) Nicotine dependence Current Visit: Yes Status: Chronic Qualifiers: Nicotine product type: cigarettes Substance use status: uncomplicated Qualified Code(s): F17.210 - Nicotine dependence, cigarettes, uncomplicated; F17.210 - Nicotine dependence, cigarettes, uncomplicated (4) Opioid dependence with withdrawal Current Visit: Yes Status: Chronic (5) Osteoarthritis Current Visit: Yes Status: Chronic Cleared for Admission [facility] - Detox or Rehab [facility] Level of Care: Observation Bed Claeared for Rehab Admission: Yes [facility] Breath Alcohol Content Breath Alcohol Content: 0 Urine Pregancy Test - Result Urine Test Results: Negative- NO Line Present Urine Drug Screen - Results Drug Screen Negative: No Urine Drug Screen Results: OPI-Opiates, BZO-Benzodiazepines, MTD-Methadone, TCA- Tricyclic Antidepress Inpatient Rehab Admission - Initial Determination Are CD services needed?: Yes Free of communicable disease: Yes Not in need of hospitalization: Yes - Rehab Admission Criteria Previous failed treatment: Yes Poor recovery environment: Yes Comorbidities: No Lacks judgement: No Patient is meeting Inpatient Rehab admission criteria:: Yes
[2017-03-27] MEDS ORDERED: P-EPHED 60MG/TRIPROLIDI 2.5MG TABLET PO PRN (20:26)
[2017-03-27] MEDS ORDERED: guaiFENesin/D-METHORPHAN HB 10 ML UNIT-DOSE CUPS PO PRN (20:26)
[2017-03-27] MEDS ORDERED: LOPERAMIDE HCL 2 MG CAPSULE PO PRN (20:26)
[2017-03-27] MEDS ORDERED: MAGNESIUM HYDROX 2400MG/30ML ORAL SUSPENSION 30 ML CUP PO PRN (20:26)
[2017-03-27] MEDS ORDERED: MAGNESIUM CITRATE 300 ML BOTTLE PO PRN (20:26)
[2017-03-27] MEDS ORDERED: MAG HYDROX/AL HYDROX/SIMETH 30 ML UNIT-DOSE CUP PO PRN (20:26)
[2017-03-27] MEDS ORDERED: IBUPROFEN 400 MG TABLET (FP) PO PRN (20:26)
[2017-03-27] MEDS ORDERED: ACETAMINOPHEN 325 MG TABLET (FP) PO PRN (20:26)
[2017-03-27] MEDS ORDERED: MENTHOL/PHENOL 1 EACH UD MM PRN (20:26)
[2017-03-27] MEDS ORDERED: diphenhydrAMINE HCL 50 MG CAPSULE PO PRN (20:26)
[2017-03-27] MEDS ORDERED: NICOTINE POLACRILEX 2 MG GUM BUC PRN (20:26)
[2017-03-27] MEDS ORDERED: hydrOXYzine PAMOATE 50 MG CAPSULE (FP) PO PRN (20:41)
[2017-03-27] MEDS ORDERED: CYCLOBENZAPRINE HCL 10 MG TABLET (FP) PO PRN (20:43)
[2017-03-27] MEDS ORDERED: ZOLPIDEM TARTRATE 5 MG TABLET PO PRN (20:43)
[2017-03-27] MEDS ORDERED: ALBUTEROL SO4 18 GM HFA INHALER IH PRN (20:46)
[2017-03-27] MEDS ORDERED: ZOLPIDEM TARTRATE 10 MG TABLET (PARK CARE ONLY) PO PRN (20:57)
[2017-03-27] MEDS ORDERED: THIAMINE HCL 100 MG TABLET (FP) PO SCH (22:00)
[2017-03-28 01:26] LABS: URINE APPEARANCE CLOUDY; URINE BILIRUBIN NEGATIVE (NEGATIVE); URINE BLOOD NEGATIVE (NEGATIVE); URINE COLOR YELLOW; URINE GLUCOSE (UA) 2+ (NEGATIVE); URINE KETONE NEGATIVE (NEGATIVE); URINE NITRITE NEGATIVE (NEGATIVE); URINE PROTEIN NEGATIVE (NEGATIVE); URINE UROBILINOGEN NEGATIVE mg/dL (0.2-1.0)
[2017-03-28 07:09] VITALS: BP 129/85; PULSE 92; TEMP 98.4
--- NOTE | 2017-03-28 08:37 | EKG ---
Test Reason : Blood Pressure : / mmHG Vent. Rate : 089 BPM Atrial Rate : 089 BPM P-R Int : 152 ms QRS Dur : 074 ms QT Int : 408 ms P-R-T Axes : 050 027 056 degrees QTc Int : 496 ms SINUS RHYTHM WITH OCCASIONAL PREMATURE VENTRICULAR COMPLEXES PROLONGED QT ABNORMAL ECG WHEN COMPARED WITH ECG OF 17-MAR-2017 00:54, PREMATURE VENTRICULAR COMPLEXES ARE NOW PRESENT NONSPECIFIC T WAVE ABNORMALITY NO LONGER EVIDENT IN INFERIOR LEADS T WAVE INVERSION NO LONGER EVIDENT IN LATERAL LEADS QT HAS LENGTHENED Confirmed by GE VIDAL, VI ([id number]) on 03/28/2017 8:37:01 AM Referred By: Indu Richard Confirmed By:VI CAROLINA MD
[2017-03-28] MEDS ORDERED: NICOTINE 21 MG/24 HOURS TOPICAL PATCH TD SCH (10:00)
[2017-03-28] MEDS ORDERED: PRENATAL VITAMINS W/ FOLIC ACID TABLET (FP) PO SCH (10:00)
[2017-03-28 11:56] LABS: URINE LEUK ESTERASE 2+ (NEGATIVE)
--- NOTE | 2017-03-29 09:10 | EKG ---
Test Reason : Blood Pressure : / mmHG Vent. Rate : 091 BPM Atrial Rate : 091 BPM P-R Int : 150 ms QRS Dur : 072 ms QT Int : 390 ms P-R-T Axes : 050 032 065 degrees QTc Int : 479 ms NORMAL SINUS RHYTHM NORMAL ECG WHEN COMPARED WITH ECG OF 28-MAR-2017 05:47, PREMATURE VENTRICULAR COMPLEXES ARE NO LONGER PRESENT Confirmed by GE VIDAL, VI ([id number]) on 03/29/2017 9:10:04 AM Referred By: Eldon Fox Confirmed By:VI CAROLINA MD
== END 2017-03-28 11:30 | disposition left against medical advice (07) | DRG 770 ==
LOC: YASAS 16:12 → Y3W 21:14
PROVIDERS: ADMIT Psychiatry & Neurology Psychiatry; ATTEND Psychiatry & Neurology Psychiatry
PROC: HZ42ZZZ Group Counseling for Substance Abuse Treatment, Cognitive-Behavioral (ICD-10-PCS; principal; 2017-03-27)
DX: F11.23 Opioid dependence with withdrawal (principal); F14.20 Cocaine dependence, uncomplicated; F17.210 Nicotine dependence, cigarettes, uncomplicated; F31.9 Bipolar disorder, unspecified; I10 Essential (primary) hypertension; J45.909 Unspecified asthma, uncomplicated; J44.9 Chronic obstructive pulmonary disease, unspecified; M19.90 Unspecified osteoarthritis, unspecified site
CPT/HCPCS: 81003; 81015; 93005; 93010